=== PATIENT | male | born 1960 | race Caucasian/White ===

== ENCOUNTER 2017-05-02 07:42 | Inpatient (IN) ==
[2017-05-02] MEDS ORDERED: 0.9 % Sodium Chloride 1,000 ML IVC ONE ×2 (07:49→08:46)
[2017-05-02] MEDS ORDERED: Ondansetron 4 MG/2 ML VIAL IVP ONE (07:49)
[2017-05-02 08:15] LABS: Basophils # 0.1 K/mcL (0.0-0.2); Basophils % 0.5 %; Hematocrit 47.4 % (37.5-50.1); Hemoglobin 15.6 g/dL (12.9-16.9); Immature Granulocytes % 0.5 % (0-4); Lymphocytes # 0.4 K/mcL (0.6-4.6); Lymphocytes % 2.1 %; Mean Corpuscular HGB Conc 32.9 g/dL (31.6-35.5); Mean Corpuscular Hemoglobin 32.6 pg (28.0-33.3); Mean Platelet Volume 9.6 fL (9.4-12.4); Monocytes # 0.9 K/mcL (0.0-1.3); Monocytes % 4.7 %; Neutrophils # 17.7 K/mcL (1.6-8.9); Platelet Count 330 K/mcL (140-400); Red Blood Count 4.79 M/mcL (4.19-5.50); Segmented Neutrophils % 92.2 %
--- NOTE | 2017-05-02 08:24 | Emergency Department Note ---
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 The patient does not appear in acute distress and does not have a surigcal abdomen. Patient is nonveral and he needle loom operator helper who took over this morning states that he has had about 6 episodes of diarrhea described at watery and brown. Denies fevers, any previous abodminal aurgeries and/or being around anyone else with simliar symptoms. PAtinet has not had any unusual food ingestion. Denies bloody stool/hematuria. - Related Data Allergies Allergy/AdvReac Type Severity Reaction Status Date / Time No Known Allergies Allergy Verified 05/02/17 07:44 Constitutional: Denies: fever, chills, weakness, weight change Eyes: Denies: eye pain, eye discharge, vision change ENT ED: Denies: ear pain, throat pain, dental pain, hearing loss, epistaxis, congestion, dysphagia Cardiovascular: Denies: chest pain, palpitations, dyspnea on exertion, edema, syncope Respiratory: Denies: cough, dyspnea, wheezes, hemoptysis, stridor Gastrointestinal: Reports: nausea, vomiting, diarrhea. Denies: abdominal pain, constipation, hematemesis, melena, hematochezia Genitourinary: Denies: urgency, dysuria, frequency, hematuria Musculoskeletal: Denies: back pain, neck pain, arthralgia, myalgia Integumentary: Denies: rash, abrasion, lesions Neurological: Denies: headache, weakness, numbness, paresthesias, confusion, abnormal gait, vertigo Psychiatric: Denies: anxiety, depression, suicidal thoughts, homicidal thoughts , auditory hallucinations, visual hallucinations Endocrine: Denies: fatigue Hematological/Lymphatic: Denies: easy bleeding, easy bruising Allergic/Immunologic: Denies: facial swelling, urticaria Past Medical History - Past Medical History Medical history: Reports: asthma, GERD, hyperlipidemia, thyroid disease Psychiatric history: Reports: no psych history - Social History Smoking Status: Never smoker Smokeless Tobacco Status: No Alcohol use: Reports: none Drug use: Reports: none Physical Exam - General Limitations: other General appearance: alert, in no apparent distress - Head Head exam: atraumatic, normocephalic, normal inspection - Eye Eye exam: Present: normal appearance, PERRL, EOMI - Expanded Eye Exam Pupils: Left: reactive - ENT ENT exam: normal exam, normal oropharynx, mucous membranes moist - Expanded ENT Exam External ear exam: Present: normal external inspection Mouth exam: Present: normal external inspection Teeth exam: Present: normal inspection Throat exam: Present: normal inspection - Neck Neck exam: Present: normal inspection, full ROM, trachea midline - Chest Chest inspection: Present: normal inspection, symmetric chest wall rise - Respiratory Respiratory exam: Present: normal lung sounds bilaterally - Cardiovascular Cardiovascular exam: Present: regular rate, normal rhythm, normal heart sounds - Abdominal Exam Abdominal exam: Present: soft, Non-Tender. Absent: tenderness, distention, guarding, rebound, rigidity - Extremities Exam Extremities exam: Present: normal inspection, full ROM. Absent: tenderness, pedal edema - Expanded Upper Extremity Exam Shoulder exam: Present: normal inspection, full ROM Arm exam: Present: normal inspection, full ROM Elbow exam: Present: normal inspection, full ROM Forearm/Wrist exam: Present: normal inspection, full ROM Hand exam: Present: normal inspection, full ROM Vascular exam: Normal: capillary refill, radial pulse - Expanded Lower Extremity Exam Hip/Pelvis exam: Present: normal inspection, full ROM Upper leg exam: Present: normal inspection, full ROM Knee exam: Present: normal inspection, full ROM Lower leg exam: Present: normal inspection, full ROM Ankle exam: Present: normal inspection, full ROM Foot/toe exam: Present: normal inspection, full ROM Neurovascular/Tendon exam: Absent: motor deficit, sensory deficit, tendon deficit - Back Exam Back exam: Present: normal inspection, full ROM. Absent: tenderness - Neurological Exam Neurological exam: Present: alert, oriented X3 - Expanded Neurological Exam Patient oriented to: Present: person, place, time Coma Scale Eye Opening: Spontaneous Coma Scale Motor Response: Obeys Commands Coma Scale Verbal Response: Oriented Coma Scale Total: 15 - Psychiatric Psychiatric exam: Present: normal affect, normal mood - Skin Skin exam: Present: warm, dry, intact, normal color Course Course Narrative: abdominal labs/ABCT and IVF for rehydration therapy - Reevaluation(s) Reevaluation #1: updated needle loom operator helper and they are agrreable to plan for admission. Time: 11:06 - Consultations Consultation #1: discussed case wtih Dr. Grace and he accpets patinet for admission to his service. Time: 11:06 Vital Signs Temperature 97.1 F L 05/02/17 07:44 Pulse Rate 85 05/02/17 07:44 Respiratory Rate 18 05/02/17 07:44 Blood Pressure 106/71 05/02/17 07:44 O2 Sat by Pulse Oximetry 97 05/02/17 07:44 Temperature 97.1 F L 05/02/17 07:44 Pulse Rate 85 05/02/17 07:44 Respiratory Rate 18 05/02/17 07:44 Blood Pressure 106/71 05/02/17 07:44 O2 Sat by Pulse Oximetry 97 05/02/17 07:44 Oxygen Delivery Oxygen Delivery Room Air Nausea/Vomiting/Diarrhea - Lab Data Result diagrams: 05/02/17 08:07 05/02/17 08:07 Lab Results 05/02/17 05/02/17 05/02/17 Range/Units 08:07 08:07 10:26 WBC 19.2 H (4.3-11.1) K/mcL RBC 4.79 (4.19-5.50) M/mcL Hgb 15.6 (12.9-16.9) g/dL Hct 47.4 (37.5-50.1) % MCV 99.0 (83.0-100.0) fL MCH 32.6 (28.0-33.3) pg MCHC 32.9 (31.6-35.5) g/dL RDW 14.0 (11.5-14.5) % Plt Count 330 (140-400) K/mcL MPV 9.6 (9.4-12.4) fL Immature Gran % 0.5 (0-4) % Seg Neutrophils % 92.2 % Lymphocytes % 2.1 % Monocytes % 4.7 % Eosinophils % 0.0 % Basophils % 0.5 % Neutrophils # 17.7 H (1.6-8.9) K/mcL Lymphocytes # 0.4 L (0.6-4.6) K/mcL Monocytes # 0.9 (0.0-1.3) K/mcL Eosinophils # 0.0 (0.0-0.6) K/mcL Basophils # 0.1 (0.0-0.2) K/mcL Immature Plt Fraction 4.0 (1.1-6.1) % Sodium 139 (136-145) mEq/L Potassium 4.2 (3.5-4.5) mEq/L Chloride 104 (98-109) mEq/L Carbon Dioxide 22 (19-29) mEq/L BUN 32 H (8-26) mg/dL Creatinine 1.60 H (0.72-1.25) mg/dL Est GFR ( Amer) 54 L (> 60) Est GFR (Non-Af Amer) 45 L (> 60) BUN/Creatinine Ratio 20 (6-26) Glucose 171 H (70-99) mg/dL Calculated Osmolality 299 (280-300) Calcium 9.5 (8.6-10.8) mg/dL Total Bilirubin 0.7 (0.2-1.2) mg/dL AST 33 (5-34) Units/L ALT 21 (0-55) Units/L Alkaline Phosphatase 218 H (38-126) Units/L Serum Total Protein 8.1 (6.0-8.3) g/dL Albumin 3.8 (3.5-5.0) g/dL Globulin 4.3 H (2.4-3.5) g/dL Albumin/Globulin Ratio 0.9 L (1.1-2.2) Lipase 13 (8-78) Units/L Urine Color Yellow (Yellow) Urine Clarity Clear (Clear) Urine pH 5.5 (5.0-8.0) pH Units Ur Specific Henry 1.024 (1.010-1.025) Urine Protein Negative (Neg-Trace) mg/dL Urine Glucose (UA) Normal (Normal) mg/dL Urine Ketones Negative (Negative) mg/dL Urine Blood Moderate H (Negative) Urine Nitrite Negative (Negative) Urine Bilirubin Negative (Negative) Urine Urobilinogen Normal (Normal) mg/dL Ur Leukocyte Esterase Negative (Negative)
[2017-05-02 08:28] LABS: Albumin 3.8 g/dL (3.5-5.0); Albumin/Globulin Ratio 0.9 (1.1-2.2); Bilirubin,Total 0.7 mg/dL (0.2-1.2); Calcium 9.5 mg/dL (8.6-10.8); Globulin 4.3 g/dL (2.4-3.5); Potassium 4.2 mEq/L (3.5-4.5); Total Protein 8.1 g/dL (6.0-8.3)
[2017-05-02] MEDS ORDERED: MetroNIDAZOLE 500 MG/100 ML 500 MG/100 ML BAG IVPB ONE (08:42)
[2017-05-02 10:40] LABS: Bilirubin,Urine Negative (Negative); Blood,Urine Moderate (Negative); Clarity,Urine Clear (Clear); Color,Urine Yellow (Yellow); Glucose,Urine (UA) Normal (Normal); Ketones,Urine Negative (Negative); Leukocyte Esterase,Urine Negative (Negative); Nitrite,Urine Negative (Negative); PH,Urine 5.5 pH Units (5.0-8.0); Protein,Urine Negative (Neg-Trace); Specific Gravity,Urine 1.024 (1.010-1.025); Urobilinogen,Urine Normal (Normal)
[2017-05-02 10:41] LABS: Hyaline Casts,Urine Few per lpf (None-Few); RBC,Urine 30-50 per hpf (0-3); Squamous Epithelial Cell,Urine Many per lpf (None-Few); WBC,Urine 0-3 per hpf (0-3)
[2017-05-02 11:08] LABS: Bacteria,Urine Few per hpf (None-Few)
[2017-05-02] MEDS ORDERED: Naloxone 0.4 MG/ML INJ IVP PRN (11:30)
[2017-05-02] MEDS ORDERED: Acetaminophen 325 MG TABLET PO PRN (11:30)
[2017-05-02] MEDS ORDERED: Ondansetron 4 MG/2 ML VIAL IVP PRN (11:30)
[2017-05-02 12:09] LABS: Prothrombin Time 11.2 Seconds (9.4-12.1)
--- NOTE | 2017-05-02 12:42 | Internal Med History&Physical ---
<Leelee Cobos - Last Filed: 05/02/17 12:35> Date of Encounter: 05/02/17 Time of Encounter: 11:30 Assessment and Plan (1) HARVEY (acute kidney injury) Current visit: Yes Status: Acute 1 creatinine is 1.6 baseline appears to be around 1-1.2 He has been experiencing excessive vomiting and diarrhea . We will continue to monitor creatinine 2 Gentle IV hydration 3 avoid nephrotoxins 4 renal dose ATB (2) Acute gastroenteritis Current visit: Yes Status: Acute 1 sudden onset of nausea vomiting diarrhea no fevers slight elevation in white count. We will obtain stool samples for GI panel as well as C. difficile 2 we will give IV fluids for rehydration 3. zofran for nausea 4 we will initiate Cipro and Flagyl (3) Hypothyroid Current visit: No Status: Chronic Continue with Synthroid Qualifiers: Hypothyroidism type: unspecified Qualified Code(s): E03.9 - Hypothyroidism , unspecified (4) DVT prophylaxis Current visit: Yes Status: Acute Heparin subcutaneous (5) Cystitis Current visit: Yes Status: Acute Internal Medicine - H&P: HPI Chief complaint: N/V/D Admitted From: Emergency Dept Plans for Post Hospital Care: Transfer Other History of present illness: Mr. De La Garza is a 57 year old male has a history of MRDD, Asthma hypothyroid. Information obtained from medical records due to patient's mental state and that he is nonverbal. According to ER records the patient is a resident of a care home he presented to the ER today with his caretakers with a sudden onset of diarrhea, approximately 6 episodes of watery brown stool, nausea and 1 episode of watery green vomiting since approximately 4:30 this morning. There were no fevers, sick exposures or previous abdominal pain prior to the onset of symptoms. No symptoms of hematemesis hematochezia or melena Lab work was obtained which did reveal a elevation in white count 19.2 he was afebrile on presentation non-tachycardic blood pressure was 106/71 chemistry did show an AK I the creatinine 1.60 BUN was 32. Chest x-ray with no acute process. Ct of abd rvealed Small hiatal hernia. Diffuse bladder wall thickening can be seen with urinary tract infection and Calcifications along the renal calices may represent tiny nonobstructing stones. He was given IV fluids and Cipro and has been admitted for further workup and evaluation. Presently patient is alert answers yes or no but is unable to speak clearly which apparently is his baseline. His lung sounds were clear heart sounds are regular S1 and S2 with no rubs clicks gallops murmurs noted abdomen was soft and somewhat tender to palpation. No pedal edema noted . He is hemodynamically stable at this time . I rveiwed this case with Dr Grace who agrees with plan . Past Med Surg Social Fam HX - Past Medical History Medical history: asthma, GERD, hyperlipidemia, thyroid disease Psychiatric history: no psych history - Social History Smoking Status: Never smoker Smokeless Tobacco Status: No Alcohol use: none Drug use: none Internal Medicine - H&P: Meds 3 Allergy/AdvReac Type Severity Reaction Status Date / Time No Known Allergies Allergy Verified 05/02/17 07:44 ROS unobtainable: due to mental status All Systems PM: A 10-system review of systems was performed and is negative for pertinent findings except as documented above in the HPI. - Constitutional Vitals: Temp Pulse Resp BP Pulse Ox 97.1 F L 84 20 106/48 96 05/02/17 07:44 05/02/17 11:21 05/02/17 11:25 05/02/17 11:25 05/02/17 11:21 General appearance: Present: A&O X 0, cooperative, pleasant - Head Head exam: Present: atraumatic, normocephalic - Eye Eye exam: Present: PERRL, conjuntiva pink, sclera anicteric - Neck Neck exam general surgery: Present: supple, trachea midline. Absent: lymphadenopathy - Respiratory Respiratory exam: Present: CTAB. Absent: accessory muscle use, rales, rhonchi, wheezes - Cardiovascular Cardiovascular exam: Present: RRR, +S1, +S2. Absent: diastolic murmur, gallop, rubs, systolic murmur - GI/Abdominal GI/Abdominal exam: Present: normal bowel sounds, soft, tenderness, no peritoneal signs. Absent: distended - Extremities Exam Extremities exam: Present: warm, radial pulses palpable and symmetrical. Absent : calf tenderness, cyanotic, pedal edema - Neurological Exam Neurological exam: Present: alert - Skin Skin exam: Present: dry, intact Internal Med - H&P Results - Labs CBC & Chem 7: 05/02/17 08:07 05/02/17 08:07 - Diagnostic Studies Other Images Additional comments: Abdomen/Pelvis CT 05/02/17 07:49 IMPRESSION: 1. Small hiatal hernia. 2. Diffuse bladder wall thickening can be seen with urinary tract infection. 3. Calcifications along the renal calices may represent tiny nonobstructing stones. D/ / Aleksander Rhodes MD / Aleksander Rhodes MD Interpreting Provider: Aleksander Rhodes MD Chest X-Ray 05/02/17 08:58 IMPRESSION: No acute cardiopulmonary findings. D/ / Phyllis Mcginnis MD / Phyllis Mcginnis MD Interpreting Provider: Phyllis Mcginnis MD <Chauncey Tim - Last Filed: 05/02/17 14:06> Date of Encounter: 05/02/17 Internal Medicine - H&P: HPI History of present illness: Mr. De La Garza is a 57 year old male All Systems PM: A 10-system review of systems was performed and is negative for pertinent findings except as documented above in the HPI. - Constitutional Vitals: Temp Pulse Resp BP Pulse Ox 98.0 F 75 16 97/62 96 05/02/17 12:54 05/02/17 12:54 05/02/17 12:54 05/02/17 12:54 05/02/17 12:54 Internal Med - H&P Results - Labs CBC & Chem 7: 05/02/17 08:07 05/02/17 08:07 - Attending Attestation I examined this patient and my medical decision-making was reviewed with the WELT ROUGHER. I agree with the documented findings, disposition and treatment plan as described except to the extent set forth below. Patient is anything 57-year-old male with past medical history of GERD, asthma, hypothyroidism and MRDD. Patient lives in a care home, and he presented to the ED with sudden onset of diarrhea that started early this morning. No vomiting and no fever. Patient had several episodes of vomiting. Initial workup reveals significantly elevated white count and elevated creatinine. Patient is being admitted for acute gastroenteritis. IV Flagyl and IV Cipro and IV fluids will be continued. Patient is nonverbal, but he is awake and alert and not in any distress. Heart rate 75, blood pressure 97/62, O2 96% on room air. Heart S1-S2 positive. abdomen soft nontender. Extremities all pulses strong and regular no edema.
[2017-05-02] MEDS: Pantoprazole 40 MG VIAL IVP SCH (13:14)
[2017-05-02] MEDS: 0.9 % Sodium Chloride 1,000 ML IVC SCH (13:15)
[2017-05-02] MEDS: MetroNIDAZOLE 500 MG/100 ML 500 MG/100 ML BAG IVPB SCH (15:39)
[2017-05-02] MEDS: *HR* Heparin 5,000 UNIT/ML VIAL SQ SCH (17:29)
[2017-05-03] MEDS: 0.9 % Sodium Chloride 1,000 ML IVC SCH ×2 (00:24→14:17)
[2017-05-03] MEDS: MetroNIDAZOLE 500 MG/100 ML 500 MG/100 ML BAG IVPB SCH ×4 (00:24→23:35)
[2017-05-03 05:00] LABS: Basophils # 0.1 K/mcL (0.0-0.2); Basophils % 1.9 %; Eosinophils % 0.8 %; Hematocrit 39.3 % (37.5-50.1); Immature Granulocytes % 0.5 % (0-4); Lymphocytes # 0.9 K/mcL (0.6-4.6); Lymphocytes % 24.7 %; Mean Corpuscular HGB Conc 32.1 g/dL (31.6-35.5); Mean Corpuscular Hemoglobin 32.1 pg (28.0-33.3); Mean Corpuscular Volume 100.3 fL (83.0-100.0); Mean Platelet Volume 9.6 fL (9.4-12.4); Monocytes # 0.6 K/mcL (0.0-1.3); Monocytes % 15.4 %; Neutrophils # 2.1 K/mcL (1.6-8.9); Platelet Count 270 K/mcL (140-400); Red Blood Count 3.92 M/mcL (4.19-5.50); Red Cell Distribution Width 14.2 % (11.5-14.5); Segmented Neutrophils % 56.7 %
[2017-05-03 05:01] LABS: Hemoglobin 12.6 g/dL (12.9-16.9)
[2017-05-03 05:09] LABS: BUN/Creatinine Ratio 17 (6-26); Blood Urea Nitrogen 19 mg/dL (8-26); Calcium 8.2 mg/dL (8.6-10.8); Carbon Dioxide 23 mEq/L (19-29); Chloride 112 mEq/L (98-109); Glucose 87 mg/dL (70-99); Osmolality,Calculated 296 (280-300); Potassium 3.6 mEq/L (3.5-4.5); Sodium 142 mEq/L (136-145); eGFR For African Americans > 60 (> 60); eGFR For Non-African Americans > 60 (> 60)
[2017-05-03] MEDS: *HR* Heparin 5,000 UNIT/ML VIAL SQ SCH ×2 (06:16→17:18)
[2017-05-03] MEDS: Pantoprazole 40 MG VIAL IVP SCH (09:46)
[2017-05-03 12:06] LABS: Basophils # 0.1 K/mcL (0.0-0.2); Basophils % 1.6 %; Eosinophils % 0.5 %; Hematocrit 39.1 % (37.5-50.1); Hemoglobin 12.7 g/dL (12.9-16.9); Immature Granulocytes % 0.9 % (0-4); Lymphocytes # 0.9 K/mcL (0.6-4.6); Lymphocytes % 19.4 %; Mean Corpuscular HGB Conc 32.5 g/dL (31.6-35.5); Mean Corpuscular Hemoglobin 32.6 pg (28.0-33.3); Mean Corpuscular Volume 100.5 fL (83.0-100.0); Mean Platelet Volume 9.4 fL (9.4-12.4); Monocytes # 0.6 K/mcL (0.0-1.3); Neutrophils # 2.8 K/mcL (1.6-8.9); Platelet Count 255 K/mcL (140-400); Red Blood Count 3.89 M/mcL (4.19-5.50); Red Cell Distribution Width 14.2 % (11.5-14.5); Segmented Neutrophils % 63.6 %
[2017-05-03 12:20] LABS: BUN/Creatinine Ratio 15 (6-26); Blood Urea Nitrogen 16 mg/dL (8-26); Calcium 8.2 mg/dL (8.6-10.8); Carbon Dioxide 24 mEq/L (19-29); Chloride 110 mEq/L (98-109); Glucose 84 mg/dL (70-99); Osmolality,Calculated 286 (280-300); Potassium 3.7 mEq/L (3.5-4.5); Sodium 138 mEq/L (136-145); eGFR For African Americans > 60 (> 60); eGFR For Non-African Americans > 60 (> 60)
[2017-05-03] MEDS ORDERED: Albuterol 2.5 MG/3 ML NEBULIZER IH PRN (13:28)
--- NOTE | 2017-05-03 18:33 | Electrocardiograph Report ---
[place] [id number] Test Date: 2017-05-02 Pat Name: Robin De La Garza Department: 115 Room: 3A33 Gender: M Manager Community: [place] : 1960 Requested By: Chauncey Tim Order Number: [id number] Reading MD: Rich Pepper MD Measurements Intervals [place] Rate: 76 P: 65 IN: 161 QRS: 16 QRSD: 112 T: 36 QT: 369 QTc: 400 Interpretive Statements SINUS RHYTHM BASELINE ARTIFACT Electronically Signed On 05-03-2017 18:31:49 EDT by Rich Pepper MD
--- NOTE | 2017-05-03 18:49 | Internal Med Progress Note ---
Date of Encounter: 05/03/17 Time of Encounter: 10:00 - Assessment and plan (1) Acute gastroenteritis Current Visit: Yes Status: Acute Assessment and plan: -Patient with nausea/vomiting/diarrhea suspect secondary to gastroenteritis -Stool cultures pending. -Continue IV antibiotics. (2) HARVEY (acute kidney injury) Current Visit: Yes Status: Acute Assessment and plan: -Suspect secondary to dehydration due to the above -Will continue to monitor. (3) Dehydration Current Visit: Yes Status: Acute Assessment and plan: -Due to the above. - Subjective Interval history: Patient is noncommunicative - Constitutional Vitals: Temp Pulse Resp BP Pulse Ox 98.5 F 74 16 104/70 91 05/03/17 14:50 05/03/17 14:50 05/03/17 14:50 05/03/17 14:50 05/03/17 14:50 General appearance: Present: A&O X 0, cooperative, pleasant - Respiratory Respiratory exam: Present: CTAB. Absent: accessory muscle use, rales, rhonchi, wheezes - Cardiovascular Cardiovascular exam: Present: RRR, +S1, +S2. Absent: diastolic murmur, gallop, rubs, systolic murmur Internal Medicine: Result - Labs CBC & Chem 7: 05/03/17 11:57 05/03/17 11:57 Labs: Short CBC 05/03/17 05/03/17 Range/Units 04:29 11:57 WBC 3.7 L D 4.4 (4.3-11.1) K/mcL Hgb 12.6 L D 12.7 L (12.9-16.9) g/dL Hct 39.3 39.1 (37.5-50.1) % Plt Count 270 255 (140-400) K/mcL Neutrophils # 2.1 2.8 (1.6-8.9) K/mcL BMP 05/03/17 05/03/17 04:29 11:57 Sodium 142 138 Potassium 3.6 3.7 Chloride 112 H 110 H Carbon Dioxide 23 24 BUN 19 D 16 Creatinine 1.09 1.09 Glucose 87 84 Calcium 8.2 L 8.2 L - ABG Interpretation ABG results: PT/INR, D-dimer PT 11.2 Seconds (9.4-12.1) 05/02/17 08:06 Consult Discharge Plan - Plan Referrals: Shraddha Celeste MD [Primary Care Provider] -
[2017-05-04] MEDS: *HR* Heparin 5,000 UNIT/ML VIAL SQ SCH (05:55)
[2017-05-04] MEDS ORDERED: Levothyroxine 25 MCG TABLET PO SCH (06:30)
[2017-05-04] MEDS: Pantoprazole 40 MG VIAL IVP SCH (08:51)
[2017-05-04] MEDS: MetroNIDAZOLE 500 MG/100 ML 500 MG/100 ML BAG IVPB SCH (08:51)
[2017-05-04] MEDS ORDERED: Loratadine 10 MG TABLET PO SCH (09:00)
[2017-05-04 09:44] LABS: Hemoglobin 13.3 g/dL (12.9-16.9); Mean Corpuscular HGB Conc 34.1 g/dL (31.6-35.5); Mean Corpuscular Hemoglobin 32.9 pg (28.0-33.3); Mean Corpuscular Volume 96.5 fL (83.0-100.0); Mean Platelet Volume 9.5 fL (9.4-12.4); Platelet Count 255 K/mcL (140-400); Red Blood Count 4.04 M/mcL (4.19-5.50); Red Cell Distribution Width 13.6 % (11.5-14.5)
[2017-05-04 09:58] LABS: BUN/Creatinine Ratio 13 (6-26); Blood Urea Nitrogen 15 mg/dL (8-26); Calcium 8.5 mg/dL (8.6-10.8); Carbon Dioxide 22 mEq/L (19-29); Chloride 108 mEq/L (98-109); Glucose 117 mg/dL (70-99); Osmolality,Calculated 288 (280-300); Potassium 3.7 mEq/L (3.5-4.5); Sodium 138 mEq/L (136-145); eGFR For African Americans > 60 (> 60); eGFR For Non-African Americans > 60 (> 60)
[2017-05-04] MEDS ORDERED: Beclomethasone 80mcg MDI IH SCH (10:00)
[2017-05-04 10:27] VITALS: BP 95/67
[2017-05-04 10:36] LABS: Basophils # 0.2 K/mcL (0.0-0.2); Eosinophils # 0.1 K/mcL (0.0-0.6); Lymphocytes # 0.5 K/mcL (0.6-4.6); Monocytes # 0.3 K/mcL (0.0-1.3); Neutrophils # 2.7 K/mcL (1.6-8.9); Platelet Estimate Normal (Normal); Reactive Lymphocytes Present (Not Present)
[2017-05-04 10:38] LABS: Large Platelets Present (Not Present)
--- NOTE | 2017-05-04 14:56 | Discharge Summary ---
Date of Encounter: 05/04/17 Time of Encounter: 10:00 - Discharge Diagnosis (1) Acute gastroenteritis Priority: Primary Status: Acute (2) HARVEY (acute kidney injury) Priority: Secondary Status: Acute (3) Dehydration Priority: Secondary Status: Acute - Discharge Medications Home Medications: Acetaminophen [Tylenol] 650 mg PO Q4H PRN 05/02/17 [History] Albuterol Neb [Proventil Neb] 2.5 mg IH Q8H PRN 05/02/17 [History] Albuterol Sulfate [Ventolin Hfa] 2 puff IH Q4H PRN 05/02/17 [History] Donepezil [Aricept] 10 mg PO HS 05/02/17 [History] Fluticasone Propionate Nasal [Flonase] 50 mcg NS DAILY 05/02/17 [History] Fluticasone Propionate [Flovent Hfa] 2 puff IH BID 05/02/17 [History] Gemfibrozil [Lopid] 600 mg PO BIDWM 05/02/17 [History] Guaifenesin [Tussin] 200 mg PO Q6H PRN 05/02/17 [History] Ibuprofen [Motrin] 400 mg PO Q4H PRN 05/02/17 [History] Levothyroxine [Synthroid] 25 mcg PO 0630 05/02/17 [History] Loperamide HCl [Anti-Diarrheal] 2 mg PO PER PKG DI PRN 05/02/17 [History] Loratadine [Claritin] 10 mg PO DAILY 05/02/17 [History] Mag Hydrox/Al Hydrox/Simeth [Antacid Suspension] 30 ml PO Q4H PRN 05/02/17 [ History] Magnesium Hydroxide [Milk of Magnesia] 2,400 mg PO Q72H PRN 05/02/17 [History] Memantine HCl [Namenda Xr] 28 mg PO HS 05/02/17 [History] Montelukast [Singulair] 10 mg PO DAILY 05/02/17 [History] Omeprazole [PriLOSEC] 20 mg PO Q48H 05/02/17 [History] Sodium Chloride [Saline Nasal Mist] 2 spray NS BID 05/02/17 [History] Allergies/Adverse Reactions: 3 Allergy/AdvReac Type Severity Reaction Status Date / Time No Known Allergies Allergy Verified 05/02/17 07:44 Date of admission: 05/02/17 11:30 Primary care physician: Shraddha Celeste - Patient Status Disposition: Transfer LTC - Discharge Instructions Follow Up With: Shraddha Celeste MD [Primary Care Provider] - Hospital course: Patient is a 57 year old male with past medical history significant for MRDD, asthma and hypothyroid who presented from care home to the ER on 05/02/17 for nausea/vomiting/diarrhea. Information was obtained from medical records due to patient's MRDD/ nonverbal. According to ER records, the patient is a resident of a care home and was reported to have a sudden onset of approximately 6 episodes of watery brown stool/diarrhea with nausea/vomiting; there were no sick exposures. In the ER, patient was found to have leukocytosis (white count 19.2) hypotensive and with HARVEY. Chest x-ray and CT of the abdomen/pelvis showed no acute findings. During patients hospital stay he was treated with IV fluids and IV Cipro/ Flagyl. Patient had no further episodes of nausea/vomiting/diarrhea during hospital stay. In addition, patients leukocytosis has resolved and he is afebrile; his HARVEY resolved as well (secondary to dehydration). Suspect symptoms secondary to viral gastroenteritis. Patient is now medically stable and will be discharged back to care home. - Time Spent with Patient Total time spent providing and/or coordinating discharge services: Less than 30 minutes - Constitutional Vitals: Temp Pulse Resp BP Pulse Ox 97.8 F 69 16 95/67 96 05/04/17 10:05/04/17 10:05/04/17 10:26 05/04/17 10:05/04/17 10:26 General appearance: Present: A&O X 0, cooperative, pleasant - Cardiovascular Cardiovascular exam: Present: RRR, +S1, +S2. Absent: diastolic murmur, gallop, rubs, systolic murmur - GI/Abdominal GI/Abdominal exam: Present: normal bowel sounds, soft, no peritoneal signs. Absent: distended, tenderness
== END 2017-05-04 17:20 | disposition home or self-care (01) | DRG 392 ==
LOC: EMEROO 07:42 → 3ANU 07:42
PROVIDERS: ADMIT Family Medicine; ATTEND Hospitalist